=== PATIENT | male | born 1985 | race African-American/Black ===

== ENCOUNTER 2020-05-31 02:52 | Emergency (ER) | payer MEDICAID ==
[~2020-05-31] VITALS: Ht 180.3 cm; Wt 95.0 kg
[~2020-05-31 02:52] MED LIST: ALBU6.7H9
[2020-05-31 03:02] VITALS: BP 137/94
[2020-05-31] MEDS ORDERED: AZITHROMYCIN 500 MG TABLET PO ONE (03:45)
[2020-05-31] MEDS ORDERED: IBUPROFEN 600MG TABLET PO ONE (03:45)
== END 2020-05-31 03:54 | disposition home or self-care (01) ==
LOC: ER 02:52
DX: J02.0 Streptococcal pharyngitis (principal); J45.909 Unspecified asthma, uncomplicated
CPT/HCPCS: 99283

== ENCOUNTER 2020-06-19 09:17 | Emergency (ER) | payer MEDICAID ==
[~2020-06-19] VITALS: Ht 190.5 cm; Wt 113.0 kg
[2020-06-19 09:18] VITALS: BP 134/81
[2020-06-19] MEDS ORDERED: IBUPROFEN 600MG TABLET PO ONE (09:30)
== END 2020-06-19 10:20 | disposition home or self-care (01) ==
LOC: ER 09:17
DX: S93.401A Sprain of unspecified ligament of right ankle, initial encounter (principal); J45.909 Unspecified asthma, uncomplicated; X50.1XXA Overexertion from prolonged static or awkward postures, initial encounter; Y93.9 Activity, unspecified; Y92.9 Unspecified place or not applicable
CPT/HCPCS: 73610; 99283

== ENCOUNTER 2020-11-01 18:02 | Emergency (ER) | payer MEDICAID, OTHER ==
[~2020-11-01] VITALS: Ht 182.9 cm; Wt 109.0 kg
[2020-11-01 18:07] VITALS: BP 151/89
[2020-11-01] MEDS ORDERED: BACITRACIN ZINC OINT UDPKT TOP ONE (18:30)
[2020-11-01] MEDS ORDERED: TETANUS, DIPHTHERIA, PERTUSSIS VAC/PF 0.5ML (>7YR OLD) IM ONE (18:30)
[2020-11-01] MEDS ORDERED: IBUPROFEN 600MG TABLET PO ONE (18:30)
[2020-11-01] MEDS ORDERED: LIDOCAINE HCL/EPINEPHRINE 1%-EPI 1:100,000 50 ML VIAL INFIL NR (18:30)
[2020-11-01] MEDS ORDERED: LIDOCAINE 1%/EPI 1:100,000 10 ML VIAL IJ ONE (18:30)
== END 2020-11-01 19:15 | disposition home or self-care (01) ==
LOC: ER 18:02
DX: M54.6 Pain in thoracic spine (principal); F17.290 Nicotine dependence, other tobacco product, uncomplicated; Z98.890 Other specified postprocedural states
CPT/HCPCS: 90471; 90715; 99283; J3490

== ENCOUNTER 2020-11-26 02:59 | Emergency (ER) | payer MEDICAID ==
[~2020-11-26] VITALS: Ht 190.5 cm; Wt 113.0 kg
[2020-11-26 03:11] VITALS: BP 125/76
[2020-11-26] MEDS ORDERED: AMOXICILLIN/POTASSIUM CLAVULANATE 875/125MG TAB PO ONE (03:45)
[2020-11-26] MEDS ORDERED: ACETAMINOPHEN 325MG TABLET PO ONE (03:45)
[2020-11-26] MEDS ORDERED: TOPUD PO (04:19)
[2020-11-26] MEDS ORDERED: AMOX-424 MT (04:19)
[2020-11-26] MEDS ORDERED: IBUP-1523 MT (04:19)
== END 2020-11-26 04:48 | disposition home or self-care (01) ==
LOC: ER 02:59
DX: K04.7 Periapical abscess without sinus (principal)
CPT/HCPCS: 99283

== ENCOUNTER 2021-06-21 13:40 | Emergency (ER) | payer MEDICAID ==
[~2021-06-21] VITALS: Ht 188 cm; Wt 125.0 kg
[~2021-06-21 13:40] MED LIST changes: +AMOX-424 MT; +IBUP-1523 MT; +TOPUD PO
[2021-06-21] MEDS ORDERED: HYDROCODONE/ACETAMINOPHEN 5/325MG TABLET PO ONE (14:30)
[2021-06-21] MEDS ORDERED: KETOROLAC 60MG/2ML VIAL IM ONE (14:30)
[2021-06-21] MEDS ORDERED: HYDR-4001 MT (15:33)
[2021-06-21] MEDS ORDERED: IBUP-2028 MT (15:33)
[2021-06-21 16:00] VITALS: BP 141/76
== END 2021-06-21 16:01 | disposition home or self-care (01) ==
LOC: ER 13:47
DX: M54.50 Low back pain, unspecified (principal); M54.30 Sciatica, unspecified side
CPT/HCPCS: 72100; 96372; 99283; J1885

== ENCOUNTER 2021-11-02 21:13 | Emergency (ER) | payer MEDICAID ==
[~2021-11-02] VITALS: Ht 190.5 cm; Wt 122.0 kg
[~2021-11-02 21:13] MED LIST changes: +HYDR-4001 MT; +IBUP-2028 MT
[2021-11-02] MEDS ORDERED: MORPHINE SULFATE 4 MG/ML CPJ (NOT FOR IM USE) IV ONE ×3 (21:45→23:30)
[2021-11-02 22:30] LABS: BASOPHILS % 0.7 % (0.0-2.0); EOSINOPHILS % 1.7 % (0.0-5.0); HEMATOCRIT. 41.7 % (42.0-52.0); HEMOGLOBIN. 14.1 g/dL (14.0-18.0); MEAN CORPUSCULAR HEMOGLOBIN 28.6 pg (28.0-32.0); MEAN CORPUSCULAR VOLUME 84.5 fL (80.0-94.0); MEAN PLATELET VOLUME 8.4 fl (7.4-10.4); MONOCYTES % 11.7 % (2.0-8.0); NEUTROPHILS % 51.9 % (40.0-76.0); PLATELET 217 x1000/uL (130-400); RED BLOOD CELL COUNT 4.94 mill/uL (4.7-6.1); RED CELL DISTRIBUTION WIDTH 14.5 % (11.6-14.6)
[2021-11-02 22:37] LABS: CHLORIDE 110 mEq/L (98-107)
[2021-11-03] MEDS ORDERED: IBUP-2029 MT (00:58)
[2021-11-03 02:00] VITALS: BP 139/82
== END 2021-11-03 02:51 | disposition home or self-care (01) ==
LOC: ER 21:37
DX: M25.571 Pain in right ankle and joints of right foot (principal); Z87.828 Personal history of other (healed) physical injury and trauma; Z98.890 Other specified postprocedural states; W17.89XA Other fall from one level to another, initial encounter; Y93.89 Activity, other specified; Y92.018 Other place in single-family (private) house as the place of occurrence of the external cause
CPT/HCPCS: 36415; 72100; 72170; 73560; 73600; 73620; 80053; 85025; 96374; 96376; 99284; J2270; Z7610